=== PATIENT | female | born 1945 | race Caucasian/White ===

== ENCOUNTER → 2023-11-01 13:58 | Outpatient (REF) | payer MEDICARE, OTHER, SELFPAY | LOC: DHCBC HW 13:58 | PROVIDERS: ATTENDING PHYSICIAN Internal Medicine Cardiovascular Disease; FAMILY PHYSICIAN Nurse Practitioner Primary Care | DX: R06.02 Shortness of breath (principal) | CPT/HCPCS: 93306 ==

== ENCOUNTER → 2023-11-20 08:37 | Outpatient (REF) | payer MEDICARE, OTHER, SELFPAY ==
[2023-11-20] MEDS: FLUSH (NSS) 1 FLUSH IV (11:01)
[2023-11-20] MEDS: LEXISCAN 0.400000000000000022 MG IV (11:01)
[2023-11-20] MEDS: AMINOPHYLLINE 75 MG IV (11:25)
== END ==
LOC: RCS 08:37
PROVIDERS: ATTENDING PHYSICIAN Internal Medicine Cardiovascular Disease; FAMILY PHYSICIAN Nurse Practitioner Primary Care; REFERRING PHYSICIAN Nurse Practitioner Family
DX: I47.29 Other ventricular tachycardia (principal); R06.02 Shortness of breath; R00.2 Palpitations; I10 Essential (primary) hypertension; Z95.0 Presence of cardiac pacemaker; I44.1 Atrioventricular block, second degree; R60.0 Localized edema; R19.7 Diarrhea, unspecified
CPT/HCPCS: 78452; 93017; A9500; J2785

== ENCOUNTER → 2025-02-22 12:46 | Outpatient (REF) | payer MEDICARE, OTHER, SELFPAY | LOC: HWRAD 12:46 | PROVIDERS: ATTENDING PHYSICIAN Nurse Practitioner Primary Care | DX: R22.9 Localized swelling, mass and lump, unspecified (principal) | CPT/HCPCS: 76604 ==